=== PATIENT | female | born 1975 | race Caucasian/White ===

== ENCOUNTER 2017-09-09 09:46 | Emergency (ER) | payer OTHER ==
[2017-09-09] MEDS: KETOROLAC 30 MG INJ IM (10:27)
== END 2017-09-09 10:37 | disposition home or self-care (01) ==
LOC: FTE 09:46
DX: M77.8 Other enthesopathies, not elsewhere classified (principal); E11.9 Type 2 diabetes mellitus without complications
CPT/HCPCS: 29125; 96372; 99284-25

== ENCOUNTER 2018-02-18 19:47 | Emergency (ER) | payer OTHER ==
[2018-02-18] MEDS: KETOROLAC 30 MG INJ IM (21:00)
== END 2018-02-18 22:07 | disposition home or self-care (01) ==
LOC: FTE 19:47
DX: S62.327A Displaced fracture of shaft of fifth metacarpal bone, left hand, initial encounter for closed fracture (principal); E11.9 Type 2 diabetes mellitus without complications; W18.30XA Fall on same level, unspecified, initial encounter; Y92.9 Unspecified place or not applicable
CPT/HCPCS: 29125; 73130-LT; 81025; 96372; 99284-25

== ENCOUNTER 2018-05-25 15:18 | Emergency (ER) | payer OTHER ==
[2018-05-25] MEDS: FAMOTIDINE 20 MG TAB PO (18:50)
[2018-05-25] MEDS: DEXAMETHASONE 10 MG/ML 1 ML INJ IM (18:50)
== END 2018-05-25 19:44 | disposition home or self-care (01) ==
LOC: FTE 15:18
DX: J04.0 Acute laryngitis (principal); R09.82 Postnasal drip; E11.9 Type 2 diabetes mellitus without complications
CPT/HCPCS: 96372; 99284-25